=== PATIENT | female | born 1975 | race Caucasian/White ===

== ENCOUNTER → 2020-02-21 | Outpatient (CLI) | payer OTHER ==
[~2020-02-21] MED LIST: ALPR.5 PO; Adipex-P37.5 MG PO; Bactrim Ds Tab1 EACH PO; CITA20 PO; CYCL10 PO; MELO7.5; Prozac40 MG PO; Pyridium200 MG PO; TOPI25 PO
== END | disposition home or self-care (01) ==
LOC: LAB SHORT 11:32 → PLD 11:32
DX: D22.5 Melanocytic nevi of trunk (principal); L81.4 Other melanin hyperpigmentation
CPT/HCPCS: 88305

== ENCOUNTER → 2020-07-30 | Outpatient (CLI) | payer OTHER ==
[2020-07-30 20:00] LABS: Thyroxine (T4) 6.9 ug/dL (4.8-13.9)
[2020-07-30 20:03] LABS: Alanine Aminotransfer (ALT/SGP 34 U/L (12-78); Albumin, Blood 4.1 g/dL (3.4-5.0); Albumin/Globulin Ratio 1.2 (0.8-1.8); Alk Phos 94 U/L (50-136); Anion Gap 9 mmol/L (6-16); Aspartate Aminotrans (AST/SGOT 20 U/L (12-37); Bilirubin, Total 0.9 mg/dL (0.1-1.0); Blood Urea Nitrogen 9 mg/dL (8-24); Bun/Creatinine Ratio 10.6 (12.0-20.0); CO2, Blood 24 mmol/L (21-32); Calcium, Blood 8.9 mg/dL (8.5-10.1); Chloride, Blood 107 mmol/L (98-108); Creatinine, Blood 0.85 mg/dL (0.40-1.00); Globulin, Blood 3.4 g/dL (2.2-4.0); Glomerular Filtration Rate >60 (60-); Glucose, Blood 80 mg/dL (70-99); Phosphorus, Blood 3.5 mg/dL (2.5-4.9); Potassium, Blood 3.9 mmol/L (3.5-5.5); Sodium, Blood 140 mmol/L (136-145); Thyroid Stimulating Hormone 0.623 uIU/mL (0.360-4.800); Total Protein, Blood 7.5 g/dL (6.4-8.2)
== END | disposition home or self-care (01) ==
LOC: LAB SHORT 16:15 → LAB 16:15
PROVIDERS: Internal Medicine Hematology & Oncology
DX: C43.72 Malignant melanoma of left lower limb, including hip (principal)
CPT/HCPCS: 80053; 84100; 84436; 84443

== ENCOUNTER → 2020-12-04 | Outpatient (CLI) | payer OTHER | END | disposition home or self-care (01) | LOC: LAB 11:47 → LAB SHORT 11:47 | DX: D22.5 Melanocytic nevi of trunk (principal); D22.62 Melanocytic nevi of left upper limb, including shoulder | CPT/HCPCS: 88305 ==

== ENCOUNTER → 2021-06-05 | Outpatient (CLI) | payer OTHER | END | disposition home or self-care (01) | LOC: LAB SHORT 12:03 → LAB 12:03 | DX: D22.5 Melanocytic nevi of trunk (principal); L57.0 Actinic keratosis | CPT/HCPCS: 88305; 88312 ==

== ENCOUNTER → 2021-08-14 | Outpatient (CLI) | payer OTHER | LOC: LAB SHORT 07:46 → LAB 07:46 | DX: D48.5 Neoplasm of uncertain behavior of skin (principal); Z88.5 Allergy status to narcotic agent; Z88.8 Allergy status to other drugs, medicaments and biological substances | CPT/HCPCS: 88305 ==

== ENCOUNTER → 2021-08-25 | Outpatient (CLI) | payer OTHER | END | disposition home or self-care (01) | LOC: LAB 16:00 → LAB SHORT 16:00 | DX: R39.15 Urgency of urination (principal) | CPT/HCPCS: 87077; 87086; 87186 ==

== ENCOUNTER 2021-10-08 11:41 | Inpatient (IN) | payer BC ==
[~2021-10-08] VITALS: Ht 154.9 cm; Wt 76.2 kg
[2021-10-08 12:23] LABS: BASOPHILS ABSOLUTE AUTO 0.03 K/mm3 (0.00-0.23); BASOPHILS PERCENT AUTO 0 % (0-2); EOSINOPHILS ABSOLUTE AUTO 0.11 K/mm3 (0.00-0.68); EOSINOPHILS PERCENT AUTO 1 % (0-6); Hematocrit 38.6 % (33.0-51.0); Hemoglobin 13.4 g/dL (11.5-16.0); IMMATURE GRAN ABSOLUTE AUTO 0.03 K/mm3 (0.00-0.10); IMMATURE GRAN PERCENT AUTO 0 % (0-1); LYMPHOCYTES ABSOLUTE AUTO 1.58 K/mm3 (0.84-5.20); LYMPHOCYTES PERCENT AUTO 16 % (21-46); MONOCYTES ABSOLUTE AUTO 0.57 K/mm3 (0.16-1.47); MONOCYTES PERCENT AUTO 6 % (4-13); Mean Corpuscular HGB 32.1 pg (26.0-34.0); Mean Corpuscular HGB Conc 34.7 g/dL (31.5-36.5); Mean Corpuscular Volume 93 fL (80-100); Mean Platelet Volume 11.6 fL (9.1-12.4); NEUTROPHILS ABSOLUTE AUTO 7.72 K/mm3 (1.96-9.15); NEUTROPHILS PERCENT AUTO 77 % (41-73); Platelet Count 176 K/mm3 (150-400); RDW Coefficient Variation 12.4 % (11.7-14.2); RDW Standard Deviation 42.4 fL (35.1-46.3); Red Blood Cell Count 4.17 M/mm3 (3.80-5.20); White Blood Cell Count 10.04 K/mm3 (4.00-11.30)
[2021-10-08 12:56] LABS: Alanine Aminotransfer (ALT/SGP 26 U/L (12-78); Albumin, Blood 3.2 g/dL (3.4-5.0); Albumin/Globulin Ratio 0.8 (0.8-1.8); Alk Phos 100 U/L (50-136); Anion Gap 6 mmol/L (6-16); Aspartate Aminotrans (AST/SGOT 14 U/L (12-37); Bilirubin, Total 1.8 mg/dL (0.1-1.0); Blood Urea Nitrogen 8 mg/dL (8-24); Bun/Creatinine Ratio 11.4 (12.0-20.0); CO2, Blood 27 mmol/L (21-32); Calcium, Blood 8.7 mg/dL (8.5-10.1); Chloride, Blood 103 mmol/L (98-108); Globulin, Blood 3.8 g/dL (2.2-4.0); Glomerular Filtration Rate >60 (60-); Glucose, Blood 97 mg/dL (70-99); Potassium, Blood 3.3 mmol/L (3.5-5.5); Sodium, Blood 136 mmol/L (136-145)
[2021-10-08] MEDS ORDERED: LOMAIRA8 MG (15:00)
[2021-10-08] MEDS ORDERED: MELO7.5 (15:00)
[2021-10-08 17:07] LABS: Influenza A, PCR NEGATIVE (NEGATIVE); Influenza B, PCR NEGATIVE (NEGATIVE); Resp Syncytial Virus, PCR NEGATIVE (NEGATIVE); SARS-Cov-2 (COVID-19) PCR, MMC NEGATIVE (NEGATIVE)
--- NOTE | 2021-10-08 18:31 | NUR ---
PATIENT ARRIVED TO THE FLOOR FROM ED AT ABOUT 1730 TONIGHT. NO SIGNS OR SYMPTOMS ACUTE DISTRESS NOTED. COMPLAINS OF ABD PAIN BUT DENIES NEED FOR PAIN MED AT THIS TIME. IVF STARTED PER ORDERS, IV ANTIBIOTICS CONTINUE. PATIENT ABLE TO HAVE A CLEAR LIQUID DIET TONIGHT PER DR HEATH. ADMISSION ASSESSMENT COMPLETE. PATIENT IS UP AD [facility]. ALERT AND ORIENTED, ABLE TO MAKE NEEDS AND WANTS KNOWN. CALL LIGHT AND WATER IN EASY REACH. FIONA ENCISO.
[2021-10-09 04:45] LABS: BASOPHILS ABSOLUTE AUTO 0.04 K/mm3 (0.00-0.23); BASOPHILS PERCENT AUTO 1 % (0-2); EOSINOPHILS ABSOLUTE AUTO 0.38 K/mm3 (0.00-0.68); EOSINOPHILS PERCENT AUTO 4 % (0-6); Hematocrit 36.7 % (33.0-51.0); Hemoglobin 12.5 g/dL (11.5-16.0); IMMATURE GRAN ABSOLUTE AUTO 0.03 K/mm3 (0.00-0.10); IMMATURE GRAN PERCENT AUTO 0 % (0-1); LYMPHOCYTES ABSOLUTE AUTO 1.61 K/mm3 (0.84-5.20); LYMPHOCYTES PERCENT AUTO 18 % (21-46); MONOCYTES ABSOLUTE AUTO 0.62 K/mm3 (0.16-1.47); MONOCYTES PERCENT AUTO 7 % (4-13); Mean Corpuscular HGB 32.2 pg (26.0-34.0); Mean Corpuscular HGB Conc 34.1 g/dL (31.5-36.5); Mean Corpuscular Volume 95 fL (80-100); Mean Platelet Volume 11.6 fL (9.1-12.4); NEUTROPHILS ABSOLUTE AUTO 6.15 K/mm3 (1.96-9.15); NEUTROPHILS PERCENT AUTO 70 % (41-73); Platelet Count 151 K/mm3 (150-400); RDW Coefficient Variation 12.5 % (11.7-14.2); RDW Standard Deviation 43.7 fL (35.1-46.3); Red Blood Cell Count 3.88 M/mm3 (3.80-5.20); White Blood Cell Count 8.83 K/mm3 (4.00-11.30)
[2021-10-09 05:51] LABS: Anion Gap 6 mmol/L (6-16); Blood Urea Nitrogen 6 mg/dL (8-24); Bun/Creatinine Ratio 7.3 (12.0-20.0); CO2, Blood 28 mmol/L (21-32); Calcium, Blood 8.1 mg/dL (8.5-10.1); Chloride, Blood 106 mmol/L (98-108); Creatinine, Blood 0.82 mg/dL (0.40-1.00); Glomerular Filtration Rate >60 (60-); Glucose, Blood 80 mg/dL (70-99); Potassium, Blood 4.1 mmol/L (3.5-5.5); Sodium, Blood 140 mmol/L (136-145)
--- NOTE | 2021-10-09 06:03 | NUR ---
Pt is in bed at this time where she remains much of the night and is resting comfortably in stable condition. She is alert and oriented, pleasant. Has reported pain and was medicated with ordered pain med as indicated with positive effect, no other compalaints. She is assisted with care and ADLs, assisted with bathroom and toileting needs. Call moreira given to her and encouraged to call for help when assistance is needed as she is monitored.
--- NOTE | 2021-10-09 18:30 | NUR ---
SHIFT SUMMARY PT HAS DONE WELL TODAY. TOLERATING CLEAR LQ's, VOIDING VERY WELL. SL. AMBULATING FREQ. ABD PAIN COMES & GOES. DOESN'T REPORT A BIG IMPROVEMENT. PASSING GAS. NO BM.
[2021-10-10] MEDS ORDERED: LEVFLO500 PO (11:41)
[2021-10-10] MEDS ORDERED: METR500 PO (11:42)
== END 2021-10-10 11:51 | disposition home or self-care (01) | DRG 392 ==
LOC: ER 11:41 → SURS 16:11
PROVIDERS: Physician Assistant; ADMIT Surgery
DX: K57.20 Diverticulitis of large intestine with perforation and abscess without bleeding (principal); Z20.822 Contact with and (suspected) exposure to COVID-19; Z79.899 Other long term (current) drug therapy; Z79.1 Long term (current) use of non-steroidal anti-inflammatories (NSAID); Z88.5 Allergy status to narcotic agent; Z88.8 Allergy status to other drugs, medicaments and biological substances; Z85.820 Personal history of malignant melanoma of skin
CPT/HCPCS: 0241U; 36415; 74176; 80048; 80053; 83690; 85025; 94760; 96365; 96375; 99285-25; A9270; J0744; J1885; J2405; J2543; J3010; J7030; J7120

== ENCOUNTER 2022-02-06 18:38 | Emergency (ER) | payer OTHER ==
[~2022-02-06] VITALS: Ht 154.9 cm; Wt 72.6 kg
[~2022-02-06 18:38] MED LIST changes: +LEVFLO500 PO; +LOMAIRA8 MG; +METR500 PO
[2022-02-06 19:07] LABS: BASOPHILS ABSOLUTE AUTO 0.06 K/mm3 (0.00-0.23); BASOPHILS PERCENT AUTO 0 % (0-2); EOSINOPHILS ABSOLUTE AUTO 0.08 K/mm3 (0.00-0.68); EOSINOPHILS PERCENT AUTO 1 % (0-6); Hematocrit 39.5 % (33.0-51.0); Hemoglobin 13.6 g/dL (11.5-16.0); IMMATURE GRAN ABSOLUTE AUTO 0.05 K/mm3 (0.00-0.10); IMMATURE GRAN PERCENT AUTO 0 % (0-1); LYMPHOCYTES ABSOLUTE AUTO 1.69 K/mm3 (0.84-5.20); LYMPHOCYTES PERCENT AUTO 10 % (21-46); MONOCYTES ABSOLUTE AUTO 1.15 K/mm3 (0.16-1.47); MONOCYTES PERCENT AUTO 7 % (4-13); Mean Corpuscular HGB 31.4 pg (26.0-34.0); Mean Corpuscular HGB Conc 34.4 g/dL (31.5-36.5); Mean Corpuscular Volume 91 fL (80-100); Mean Platelet Volume 11.6 fL (9.1-12.4); NEUTROPHILS ABSOLUTE AUTO 13.66 K/mm3 (1.96-9.15); NEUTROPHILS PERCENT AUTO 82 % (41-73); Platelet Count 199 K/mm3 (150-400); RDW Coefficient Variation 13.7 % (11.7-14.2); RDW Standard Deviation 46.2 fL (35.1-46.3); Red Blood Cell Count 4.33 M/mm3 (3.80-5.20); White Blood Cell Count 16.69 K/mm3 (4.00-11.30)
[2022-02-06 19:30] LABS: Alanine Aminotransfer (ALT/SGP 26 U/L (12-78); Albumin, Blood 3.6 g/dL (3.4-5.0); Albumin/Globulin Ratio 0.9 (0.8-1.8); Alk Phos 107 U/L (50-136); Anion Gap 10 mmol/L (6-16); Aspartate Aminotrans (AST/SGOT 18 U/L (12-37); Bilirubin, Total 0.9 mg/dL (0.1-1.0); Blood Urea Nitrogen 12 mg/dL (8-24); Bun/Creatinine Ratio 14.7 (12.0-20.0); CO2, Blood 22 mmol/L (21-32); Chloride, Blood 106 mmol/L (98-108); Creatinine, Blood 0.82 mg/dL (0.40-1.00); Globulin, Blood 3.9 g/dL (2.2-4.0); Glomerular Filtration Rate >60 (60-); Glucose, Blood 132 mg/dL (70-99); Potassium, Blood 3.7 mmol/L (3.5-5.5); Sodium, Blood 138 mmol/L (136-145); Total Protein, Blood 7.5 g/dL (6.4-8.2)
[2022-02-06] MEDS ORDERED: CEPH500 PO (21:06)
== END 2022-02-06 21:35 | disposition home or self-care (01) ==
LOC: ER 18:38
PROVIDERS: Physician Assistant
DX: L03.314 Cellulitis of groin (principal); Z88.5 Allergy status to narcotic agent; Z88.8 Allergy status to other drugs, medicaments and biological substances; Z79.899 Other long term (current) drug therapy
CPT/HCPCS: 36415; 76857; 80053; 82947; 85025; 93005; 93010; 96374; 99284-25; A9270; J2405

== ENCOUNTER → 2022-09-01 | Outpatient (CLI) | payer OTHER ==
[~2022-09-01] MED LIST changes: +CEPH500 PO
[2022-09-01 19:45] LABS: Albumin, Blood 3.8 g/dL (3.4-5.0); Albumin/Globulin Ratio 1.2 (0.8-1.8); Bun/Creatinine Ratio 18.8 (12.0-20.0); Calcium, Blood 9.3 mg/dL (8.5-10.1); Creatinine, Blood 0.9 mg/dL (0.40-1.00); Globulin, Blood 3.3 g/dL (2.2-4.0); Potassium, Blood 4.5 mmol/L (3.5-5.5); Thyroid Stimulating Hormone 0.449 uIU/mL (0.360-4.800); Thyroxine (T4) 5.1 ug/dL (4.8-13.9); Total Protein, Blood 7.1 g/dL (6.4-8.2)
== END | disposition home or self-care (01) ==
LOC: LAB SHORT 18:37 → LAB 18:37
PROVIDERS: Internal Medicine Hematology & Oncology
DX: C43.72 Malignant melanoma of left lower limb, including hip (principal); R53.83 Other fatigue; R61 Generalized hyperhidrosis
CPT/HCPCS: 80053; 84436; 84443

== ENCOUNTER 2022-12-31 09:42 | Day surgery (SDC) | payer OTHER ==
[~2022-12-31] VITALS: Ht 152.4 cm; Wt 77.1 kg
[2022-12-31] MEDS ORDERED: PROG100 PO (10:00)
== END 2022-12-31 12:58 | disposition home or self-care (01) ==
LOC: ORSCSDS 09:42
PROVIDERS: Orthopaedic Surgery
PROC: 01N54ZZ Release Median Nerve, Percutaneous Endoscopic Approach (ICD-10-PCS; principal; 2022-12-31 11:00)
DX: G56.03 Carpal tunnel syndrome, bilateral upper limbs (principal); Z79.899 Other long term (current) drug therapy
CPT/HCPCS: J2250; J7120

== ENCOUNTER 2023-02-11 10:02 | Day surgery (SDC) | payer OTHER ==
[~2023-02-11] VITALS: Ht 152.4 cm; Wt 76.3 kg
[~2023-02-11 10:02] MED LIST changes: +PROG100 PO
[2023-02-11 13:23] VITALS: BP 120/76
== END 2023-02-11 13:15 | disposition home or self-care (01) ==
LOC: ORSCSDS 10:02
PROVIDERS: Orthopaedic Surgery
PROC: 01N54ZZ Release Median Nerve, Percutaneous Endoscopic Approach (ICD-10-PCS; principal; 2023-02-11 11:30)
DX: G56.01 Carpal tunnel syndrome, right upper limb (principal)
CPT/HCPCS: J2250; J7120

== ENCOUNTER 2023-06-29 08:10 | Day surgery (SDC) | payer BC ==
[2023-06-29] VITALS (8 sets, daily range): BP systolic 117–136; BP diastolic 80–100
[~2023-06-29] VITALS: Ht 157.5 cm; Wt 78.6 kg
--- NOTE | 2023-06-29 08:55 | NUR ---
History, Chart, Medications and Allergies reviewed before start of procedure. Lungs clear T/O to Auscultation. Patient confirms NPO status and agrees with scheduled surgery. Pre-Op teaching done. Pt verbalizes understanding. Patient States Post-Procedure ride home has been arranged. PTS GLASSES PLACED IN HER PURSE AND UNDER PT KRISRNEY
[2023-06-29 09:00] LABS: BASOPHILS ABSOLUTE AUTO 0.06 K/mm3 (0.00-0.23); BASOPHILS PERCENT AUTO 1 % (0-2); EOSINOPHILS ABSOLUTE AUTO 0.37 K/mm3 (0.00-0.68); EOSINOPHILS PERCENT AUTO 6 % (0-6); Hemoglobin 16.6 g/dL (11.5-16.0); IMMATURE GRAN ABSOLUTE AUTO 0.01 K/mm3 (0.00-0.10); IMMATURE GRAN PERCENT AUTO 0 % (0-1); LYMPHOCYTES ABSOLUTE AUTO 1.89 K/mm3 (0.84-5.20); LYMPHOCYTES PERCENT AUTO 31 % (21-46); MONOCYTES ABSOLUTE AUTO 0.38 K/mm3 (0.16-1.47); MONOCYTES PERCENT AUTO 6 % (4-13); Mean Corpuscular HGB 31.4 pg (26.0-34.0); Mean Corpuscular HGB Conc 34.6 g/dL (31.5-36.5); Mean Corpuscular Volume 91 fL (80-100); Mean Platelet Volume 11.4 fL (9.1-12.4); NEUTROPHILS ABSOLUTE AUTO 3.44 K/mm3 (1.96-9.15); NEUTROPHILS PERCENT AUTO 56 % (41-73); Platelet Count 195 K/mm3 (150-400); RDW Coefficient Variation 12.6 % (11.7-14.2); RDW Standard Deviation 41.1 fL (35.1-46.3); Red Blood Cell Count 5.28 M/mm3 (3.80-5.20); White Blood Cell Count 6.15 K/mm3 (4.00-11.30)
--- NOTE | 2023-06-29 11:06 | NUR ---
PT TO DAY SURGERY STEP DOWN FROM PACU. ALERT AND ORIENTED X3. PO FLUIDS GIVEN. PT DENIES PAIN. NO BLEEDING ON MEL PAD.
--- NOTE | 2023-06-29 11:20 | NUR ---
PT TOLERATING PO FLUIDS WELL. AMBULATE TO BATHROOM AND VOIDED. MEL PAD REMAINS CLEAN, NO BLOOD NOTED.
--- NOTE | 2023-06-29 11:41 | NUR ---
Patient up to Ambulate independently. Gait steady. Discharge instructions reviewed with patient. Patient verbalizes understanding. Copy given to patient to take home. Patient States Post-Procedure ride home has been arranged. Discharged via wheelchair to private car for ride home.
== END 2023-06-29 22:50 | disposition home or self-care (01) ==
LOC: ORSCMMR 08:10 → ORD 09:30 → ORSCMMR 22:50
PROVIDERS: Obstetrics & Gynecology
PROC: 0UPD7HZ Removal of Contraceptive Device from Uterus and Cervix, Via Natural or Artificial Opening (ICD-10-PCS; principal; 2023-06-29 09:30)
DX: Z30.432 Encounter for removal of intrauterine contraceptive device (principal); F41.9 Anxiety disorder, unspecified; Z79.899 Other long term (current) drug therapy
CPT/HCPCS: 85025; J2250; J2704; J3010; J7120

== ENCOUNTER 2024-04-26 07:57 | Day surgery (SDC) | payer BC ==
[~2024-04-26] VITALS: Ht 154.9 cm; Wt 72.9 kg
[~2024-04-26 07:57] MED LIST changes: +Lactated Ringer's 1,000 ML IV ONE; +propofoL 50 ML IV ONE
[2024-04-26] MEDS ORDERED: Lactated Ringer's 1,000 ML IV ONE (08:57)
[2024-04-26 10:01] VITALS: BP 114/81
== END 2024-04-26 09:45 | disposition home or self-care (01) ==
LOC: ORSCSDS 07:57
PROVIDERS: Surgery
PROC: 0DBP8ZX Excision of Rectum, Via Natural or Artificial Opening Endoscopic, Diagnostic (ICD-10-PCS; principal; 2024-04-26 09:15)
DX: Z12.11 Encounter for screening for malignant neoplasm of colon (principal); K62.1 Rectal polyp; Z85.828 Personal history of other malignant neoplasm of skin; Z79.899 Other long term (current) drug therapy
CPT/HCPCS: 88305; J2704; J7120

== ENCOUNTER → 2024-06-22 | Outpatient (CLI) | payer BC ==
[~2024-06-22] MED LIST changes: -Lactated Ringer's 1,000 ML IV ONE; -propofoL 50 ML IV ONE
== END ==
LOC: LAB SHORT 14:33 → LAB 14:33 → EDSTATUS 17:04
DX: L08.9 Local infection of the skin and subcutaneous tissue, unspecified (principal); S91.002A Unspecified open wound, left ankle, initial encounter
CPT/HCPCS: 87070; 87205

== ENCOUNTER 2024-12-11 21:57 | Emergency (ER) | payer BC ==
[~2024-12-11] VITALS: Ht 154.9 cm; Wt 72.6 kg
[2024-12-12 00:40] VITALS: BP 123/79
== END 2024-12-12 00:40 | disposition home or self-care (01) ==
LOC: ER 21:57
DX: S01.511A Laceration without foreign body of lip, initial encounter (principal); W22.8XXA Striking against or struck by other objects, initial encounter; Z79.899 Other long term (current) drug therapy; Z88.5 Allergy status to narcotic agent; Z88.8 Allergy status to other drugs, medicaments and biological substances
CPT/HCPCS: 12011; 99282-25